=== PATIENT | female | born 1990 | race Asian ===

== ENCOUNTER → 2016-11-30 | Outpatient (CLI) | payer BC | END | disposition home or self-care (01) | LOC: C.PAPS 15:30 | PROVIDERS: ATTEND Obstetrics & Gynecology | DX: Z01.419 Encounter for gynecological examination (general) (routine) without abnormal findings (principal) ==

== ENCOUNTER → 2017-09-15 | Outpatient (CLI) | payer OTHER | END | disposition home or self-care (01) | LOC: C.LABSPEC 11:19 | PROVIDERS: ATTEND Obstetrics & Gynecology | DX: Z34.01 Encounter for supervision of normal first pregnancy, first trimester (principal) ==

== ENCOUNTER → 2017-09-20 | Outpatient (CLI) | payer OTHER ==
[2017-09-20 10:43] LABS: BASO % 0.1 %; BASO ABS # 0.01 K/uL (0-0.2); EOS % 0.6 %; EOS ABS # 0.04 K/uL (0-0.5); HEMATOCRIT 39.3 % (37-47); HEMOGLOBIN 13.3 g/dL (12.0-16.0); IG# 0.02 K/uL (0.00-0.02); LYMPH % 15.2 %; LYMPH ABS # 1.07 K/uL (1.2-3.4); MEAN CELL VOLUME 92.5 fL (80-100); MEAN CORPUSCULAR HEMOGLOBIN 31.3 pg (25-34); MEAN CORPUSCULAR HGB CONC 33.8 g/dl (32-36); MEAN PLATELET VOLUME 10.4 fL (7.4-10.4); MONO % 6.3 %; MONO ABS # 0.44 K/uL (0.11-0.59); NEUT % 77.5 %; NEUT ABS # 5.46 K/uL (1.4-6.5); PLATELET COUNT 253 K/uL (130-400); RED CELL DISTRIBUTION WIDTH CV 13.3 % (11.5-14.5); RED CELL DISTRIBUTION WIDTH SD 44.3 fL (36.4-46.3); WHITE BLOOD COUNT 7.04 K/uL (4.8-10.8)
== END | disposition home or self-care (01) ==
LOC: C.LAB1850 09:02
PROVIDERS: ATTEND Obstetrics & Gynecology
DX: Z34.01 Encounter for supervision of normal first pregnancy, first trimester (principal)

== ENCOUNTER → 2017-11-16 | Outpatient (CLI) | payer OTHER | END | disposition home or self-care (01) | LOC: C.LAB1850 15:33 | PROVIDERS: ATTEND Obstetrics & Gynecology | DX: Z34.02 Encounter for supervision of normal first pregnancy, second trimester (principal) ==

== ENCOUNTER → 2018-03-31 | Outpatient (CLI) | payer OTHER | END | disposition home or self-care (01) | LOC: C.LABSPEC 11:17 | PROVIDERS: ATTEND Obstetrics & Gynecology | DX: Z34.03 Encounter for supervision of normal first pregnancy, third trimester (principal) ==

== ENCOUNTER 2021-02-02 04:20 | Inpatient (IN) ==
[2021-02-02] MEDS ORDERED: OXYTOCIN 30 UNITS/500 ML BAG IV PRN ×3 (05:12→12:35)
[2021-02-02] MEDS ORDERED: ePHEDrine sulfate 50 MG/ML AMP ONE (05:21)
[2021-02-02] MEDS ORDERED: SODIUM CHLORIDE 0.9% INJ 10 ML VIAL ONE (05:21)
[2021-02-02] MEDS ORDERED: fentaNYL citrate 100 MCG/2 ML VIAL ONE (05:22)
[2021-02-02] MEDS ORDERED: BUPIVACAINE 0.25% 30 ML VIAL ONE (05:22)
[2021-02-02] MEDS ORDERED: fentaNYL 2MCG/ML ROPIVACAINE 1.25MG/ML 100 ML BAG EPI ONE (05:22)
--- NOTE | 2021-02-02 05:24 | History & Physical Report ---
Date of Service February 02, 2021 Assessment & Plan (1) Normal labor: IUP at 40+ weeks wth SPROM and early labor monitor for now because of mild variables epidural when requested by patient anticipate vaginal delivery History of Present Illness Primary Care Provider: NO PCP Patient is a 30 yo Female EDC 01/30/21 who presents with SPROM for clear fluid at 330. some sporadic ctins now. GBS negative. uncomplicated Allergies Allergy/AdvReac Type Severity Reaction Status Date / Time No Known Allergies Allergy Verified 02/02/21 04:46 Home Medications Medication Instructions Recorded Confirmed Type prenat.vits,mihir,[id number] 1 tab PO DAILY 03/09/19 02/02/21 History Patient History Medical History Varicella vaccination Surgical History S/P wisdom tooth extraction Family History Denies family history of Ovarian cancer Breast cancer Colorectal cancer Social History Smoking Status: Never smoker Second Hand Exposure: No; Hx Alcohol Use: No Hx Substance Use: No Preferred Language: Indonesian Communication Ability: Effective Executive Admin Required: No Beliefs That Will Affect Care: None marital status: marital status details: Damon Clancy (38) [phone] Current Living Situation: Spouse and Family Current Living Situation Comment: 3 year old son and current occupational status: employed current occupation: [employer] Other Information That Helps Us Care for You: No Feels Safe at Home: Yes Safety Concerns: Feels Safe At This Time Assistive Devices: Contacts and Glasses Review of Systems All systems reviewed & are unremarkable except as noted in HPI & below Physical Exam Constitutional: WD/WN, vitals as above Respiratory: normal respiratory effort, lungs clear to auscultation Cardiovascular: RRR, no murmur, no edema Gastrointestinal (Abdomen): normal bowel sounds, soft, nontender, no hepatosplenomegaly Psychiatric: A+Ox3, euthymic affect Genitourinary: OB Exam Abdomen: + vertex and + irregular contractions Manual OB Exam: + cervical dilation 4 cm, + cervical effacement 80%, + station - 2 and + amniotic fluid clear OB Exam Monitor Tracing: + external FHT monitor used, + external uterine monitor used, + category II, + normal FHT variability and + variable decelerations mild Results & Data ([facility]) Vital Signs (Past 12 Hours) Vital Signs Temp Pulse Resp BP 02/02/21 04:47 98.6 F 86 18 114/62 02/02/21 04:39 86 114/62 Coding Level of Care Code None Diagnoses Normal labor O80; Z37.9
[2021-02-02] MEDS: LACTATED RINGER'S 1,000 ML IV PRN ×3 (05:30→11:03)
[2021-02-02 05:37] LABS: Hematocrit (blood only) 37.9 % (37-47); Hemoglobin 12.9 g/dL (12.0-16.0); Mean Corpuscular Hemoglobin 33.2 pg (25-34); Mean Corpuscular Volume 97.4 fL (80-100); Mean Platelet Volume 10.8 fL (7.4-10.4); Platelet Count 160 K/uL (130-400); RDW Coefficient of Variation 13.7 % (11.5-14.5); RDW Standard Deviation 48.7 fL (36.4-46.3); Red Blood Count 3.89 M/uL (4.2-5.4); White Blood Count 5.77 K/uL (4.8-10.8)
[2021-02-02] MEDS ORDERED: ONDANSETRON INJ 2 MG/ML 2 ML VIAL IV PRN (06:20)
[2021-02-02] MEDS ORDERED: fentaNYL 2MCG/ML ROPIVACAINE 1.25MG/ML 100 ML BAG EPI PRN (06:20)
[2021-02-02] MEDS ORDERED: diphenhydrAMINE 50 MG/ML VIAL IV PRN (06:20)
[2021-02-02] MEDS ORDERED: NALOXONE HCL 0.4 MG/1 ML VIAL/CARP IV PRN (06:20)
[2021-02-02] MEDS ORDERED: ePHEDrine sulfate 50 MG/ML AMP IV PRN (06:20)
[2021-02-02] MEDS ORDERED: NALOXONE HCL 1 MG in SODIUM CHLORIDE 0.9% 1000ML 1,000 ML IV PRN (06:20)
--- NOTE | 2021-02-02 06:20 | Anesthesiology Consultation ---
Date of Service February 02, 2021 Assessment & Plan ASA ASA2 Proposed Anesthesia Anesthesia Type: Labor Epidural Risk / Benefits Reviewed With: PT / POA / Parent / Guardian, Accepts Plan and Informed Consent Obtained History Height/Weight Height: 5 ft 5 in Weight: 67.585 kg Allergies Allergy/AdvReac Type Severity Reaction Status Date / Time No Known Allergies Allergy Verified 02/02/21 04:46 Medications Home Medications Medication Instructions Recorded Confirmed Last Taken prenat.vits,mihir,[id number] 1 tab PO DAILY 03/09/19 02/02/21 01/24/21 08:00 Active Medications Generic Name Dose Route Start Last Admin Trade Name Freq PRN Reason Stop Dose Admin Lactated Ringer's 1,000 mls @ 125 mls/hr 02/02/21 05:12 02/02/21 06:28 Lr IV 02/04/21 05:11 125 mls/hr .Q8H PRN Administration L&D Protocol Protocol Past Medical History Medical History Varicella vaccination Exercise / Class Metabolic Activity II 4-5 Yardwork/Stairs/Walk up hill Past Family History Family History Denies family history of Ovarian cancer Breast cancer Colorectal cancer Past Surgical History Surgical History S/P wisdom tooth extraction Past Anesthesia History No Hx of Anesthesia Complications and No Family Hx of Anesthesia Complications History of PONV No Hx of PONV and No Hx of Motion Sickness Social History Smoking Status: Never smoker Hx Alcohol Use: No Hx Substance Use: No substance use type: does not use Review of Systems denies fever/cough/ colds/ chest pain/ SOB/ MARA denies MARA Physical Exam Vital Signs Last Vital Signs Temp 37.0 C 02/02/21 04:47 Pulse 71 02/02/21 06:42 Resp 18 02/02/21 04:47 BP 105/55 L 02/02/21 06:42 Pulse Ox 99 02/02/21 06:41 ENMT Mouth: no TMJ abnormality and no dentition abnormality Thyromental Distance: > or= 3.5 Finger Breadths Mallampati Class: II Neck neck extension not limited Respiratory normal respiratory effort; no respiratory distress Auscultation: lungs clear to auscultation bilaterally Cardiovascular Rate/Rhythm: regular rate and regular rhythm Neurologic moves all extremities Psychiatric Orientation: alert and oriented x 3 Testing Laboratory Results 02/02/21 05:24
[2021-02-02] MEDS ORDERED: oxyCODONE/ACETAMINOPHEN 5mg/325mg TAB PO PRN (12:35)
[2021-02-02] MEDS ORDERED: bisacodyL 10 MG SUPP PR PRN (12:35)
[2021-02-02] MEDS ORDERED: ACETAMINOPHEN 325 MG TAB PO PRN (12:35)
[2021-02-02] MEDS ORDERED: IBUPROFEN 600 MG TAB PO PRN (12:35)
[2021-02-02] MEDS ORDERED: HYDROCORTISONE ACETATE 25 MG SUPP PR PRN (12:35)
[2021-02-02] MEDS ORDERED: SUPERCREAM 0.870% 15 GM JAR EXT PRN (12:35)
[2021-02-02] MEDS ORDERED: BENZOCAINE 20% AER SPR 82.5 GM CAN EXT PRN (12:35)
--- NOTE | 2021-02-02 12:41 | Delivery Summary ---
Vaginal Delivery Summary Date of Service February 02, 2021 Patient is a 30-year-old -0-0-1 female who presented with rupture of membranes at approximately 3:30 AM for clear fluid. She arrived with irregular contractions and progressed to 7 cm dilated with effective epidural analgesia. Contractions continued to be irregular and Pitocin augmentation was begun. She progressed to full dilation and pushed so effectively over intact perineum for a viable male . After the head was delivered a tight nuchal cord was identified. It was clamped and cut prior to delivering the rest of the infant. There was a mild shoulder dystocia that was relieved with hip flexion. As the infant delivered easily and was placed on the mother's abdomen for further attention and drying. Initially there was poor respiratory effort and the baby was taken to the baby bed for further evaluation and stimulation. The placenta was then expressed intact with a three-vessel cord. Dilute Pitocin was used for bleeding control. Perineum was intact. Estimated blood loss 300 cc. Mother and were then doing well after delivery. Vaginal Delivery Summary [facility] Vaginal Delivery Charge Vaginal Delivery Codes: 61569 vaginal delivery with post- care Delivery Type Details: [facility]
--- NOTE | 2021-02-02 13:34 | Anesthesia Procedure Note ---
Date of Service February 02, 2021 Anesthesia Post Epidural Note Vital Signs Vital Signs: Temp Pulse Resp BP Pulse Ox 36.5 C 80 18 110/67 99 02/02/21 10:30 02/02/21 13:16 02/02/21 12:45 02/02/21 13:16 02/02/21 12:21 Pain Intensity Abdomen: Pain Intensity: 4 Notes Mental Status: alert / awake / arousable Nausea / Vomiting: adequately controlled Pain: adequately controlled Airway Patency, RR, SpO2: stable & adequate BP & HR: stable & adequate Hydration State: stable & adequate Neuraxial Anesthesia: was administered and sensory block is resolving Anesthetic Complications: no major complications apparent Epidural: Removed without complications and With tip intact
[2021-02-02] MEDS: DOCUSATE SODIUM 100 MG CAP PO SCH (20:04)
[2021-02-03 06:32] LABS: Hematocrit (blood only) 35.3 % (37-47); Hemoglobin 11.7 g/dL (12.0-16.0); Mean Corpuscular Hemoglobin 32.4 pg (25-34); Mean Corpuscular Hgb Conc 33.1 g/dL (32-36); Mean Corpuscular Volume 97.8 fL (80-100); Mean Platelet Volume 10.8 fL (7.4-10.4); Platelet Count 141 K/uL (130-400); RDW Coefficient of Variation 13.8 % (11.5-14.5); RDW Standard Deviation 49.4 fL (36.4-46.3); Red Blood Count 3.61 M/uL (4.2-5.4); White Blood Count 6.49 K/uL (4.8-10.8)
--- NOTE | 2021-02-03 06:50 | Medical Student Progress Note ---
Date of Service February 03, 2021 Assessment & Plan (1) Encounter for care and examination after delivery: Roland is a 30 year old female who is POD #1 following , overall doing well. - Hgb 12.9 (02/02) -> 11.7 (02/03) - Routine care -- OOB, ambulation, - After discharge will have 6 week follow-up with Dr. Lainez Admission and Anticipated Discharge Date Admission Date: February 02, 2021 Subjective Roland is a 30 year old female who is POD #1 following . Overall she is doing well. She has 4/10 lower abdominal and back pain that is well controlled. She has been able to ambulate, eat well, and pass gas, no bowel movement yet. She is voiding well. She reports persistent lochia with improvement this morning. has been a little challenging, so they are doing a combination of and bottle feeding, which was consistent with her experience with her first child. She denies headache, shortness of breath, chest pain, calf pain or lower extremity swelling. Physical Exam Constitutional: WD/WN, vitals as above Respiratory: normal respiratory effort, lungs clear to auscultation Cardiovascular: RRR, no murmur, no edema Musculoskeletal: no cyanosis or clubbing, extremities motor strength 5/5 bobby's sign negative bilaterally Psychiatric: A+Ox3, euthymic affect Genitourinary: uterus firm and palpable 1cm below the umbilicus Results & Data ([facility]) Vital Signs (Past 12 Hours) Vital Signs Temp Pulse Resp BP BP 02/03/21 03:15 36.6 C 69 18 119/75 02/02/21 23:05 36.9 C 73 18 95/56 L 02/02/21 19:50 36.9 C 83 18 98/60 L Supervising Attestation Resident Physician Supervision Note: I interviewed and examined the patient. Discussed with and agree with findings and plan as documented in the note. Any exceptions or clarifications are listed here: [None] Documented By: Riana Guthrie MD, FACOG
--- NOTE | 2021-02-03 07:12 | Obstetrical Progress Note ---
Date of Service February 03, 2021 Assessment & Plan (1) Encounter for care and examination after delivery: satisfactory course continue current care plan Subjective Ambulation: ambulating normally Voiding: no voiding problems Passing Gas:: Yes Diet Tolerance:: regular diet Feeding Type:: breast feeding pumping and supplementing with formula Physical Exam Constitutional WD/WN, vitals as above Psychiatric A+Ox3, euthymic affect Genitourinary OB Exam Abdomen: + fundal height (1 cm below U) Fundus: + firm Results & Data ([facility]) Vital Signs (Past 12 Hours) Vital Signs Temp Pulse Resp BP BP 02/03/21 03:15 97.9 F 69 18 119/75 02/02/21 23:05 98.4 F 73 18 95/56 L 02/02/21 19:50 98.4 F 83 18 98/60 L
[2021-02-03] MEDS ORDERED: PRENATAL VITAMIN 1 TAB PO SCH (08:00)
[2021-02-03] MEDS: DOCUSATE SODIUM 100 MG CAP PO SCH (08:27)
[2021-02-03] MEDS ORDERED: DIPHTHERIA/TETANUS/PERTUSSIS 0.5 ML SYR/VIAL IM ONE (09:00)
[2021-02-03] MEDS ORDERED: bisacodyL 5 MG TABEC PO SCH (20:00)
== END 2021-02-03 14:00 | disposition home or self-care (01) | DRG 807 ==
LOC: OPB 04:20 → 4S1 04:24 → 4S2 16:14